=== PATIENT | male | born 1980 | race African-American/Black ===

== ENCOUNTER 2020-05-18 10:06 | Emergency (ER) | payer SELFPAY ==
[2020-05-18 10:18] VITALS: BP 131/80; PULSE 84; RESP 20; TEMP 36.6; O2SAT 98
[2020-05-18 10:56] LABS: Basophils Absolute Auto 0.1 K/mm3 (0.0-0.1); Basophils Percent Auto 1.1 % (0.2-1.2); Eosinophils Absolute Auto 0.2 K/mm3 (0-0.3); Eosinophils Percent Auto 2.8 % (0-4.4); Hematocrit 40.6 % (42.0-52.0); Immature Granulocyte Absolute 0.02 K/mm3 (0.00-0.031); Immature Granulocyte Percent A 0.4 % (0-0.5); Lymphocytes Absolute Auto 1.52 K/mm3 (0.9-3.2); Lymphocytes Percent Auto 28.6 % (18.3-44.2); Mean Corpuscular Hemoglobin 22.8 pg (26-34); Mean Corpuscular Volume 71.1 fl (80-100); Mean Platelet Volume 10.3 fl (7.4-10.4); Monocytes Absolute Auto 0.4 K/mm3 (0.1-0.6); Monocytes Percent Auto 7.9 % (2.6-8.5); Neutrophils Absolute Auto 3.2 K/mm3 (1.3-6.7); Neutrophils Percent Auto 59.2 % (45.5-73.1); Platelet Count Result 262 k/mm3 (150-375); Red Blood Count 5.71 M/mm3 (4.6-6.20); Red Cell Distribution Width 15.9 % (11.5-14.5); White Blood Count 5.3 K/mm3 (4.5-10.0)
[2020-05-18 11:05] LABS: Alanine Aminotransferase 16 U/L (4-50); Albumin Level 4.5 g/dL (3.5-5.1); Alkaline Phosphatase 48 U/L (38-126); Anion Gap 7 mmol/L (8-16); Aspartate Amino Transferase 29 U/L (17-59); Bilirubin,Total 0.3 mg/dL (0.2-1.3); Blood Urea Nitrogen 12 mg/dL (9-20); Calcium 8.9 mg/dL (8.4-10.2); Carbon Dioxide 29 mmol/L (22-30); Chloride 105 mmol/L (98-107); Estimated CRCL calculation 83 ml/min; Estimated Glomerular Filt Rate > 60; Glucose 87 mg/dL (75-110); Lipase 49 U/L (23-300); Potassium 4.3 mmol/L (3.4-5.0); Sodium 141 mmol/L (137-145)
[2020-05-18 12:01] VITALS: BP 125/78; O2SAT 100
[2020-05-18 12:06] LABS: Add Urine Microscopic? YES; Appearance Urine Clear (Clear); Bilirubin Urine Negative (Negative); Blood Urine Negative (Negative); Color Urine Yellow (Yellow); Glucose Urine UA Negative (Negative); Ketones Urine Negative (Negative); Leukocyte Esterase Ur Negative LEU/UL (Negative); Mucus Urine Rare /lpf; Nitrate Urine Negative (Negative); Protein Urine Negative (Negative); RBC Urine 0-2 /hpf (0-2); Specific Grav Ur 1.024 (1.001-1.035); Squamous Epithelial Cell Urine Rare /hpf (Few); WBC Urine 0-3 /hpf
[2020-05-18 12:16] VITALS: BP 125/83; O2SAT 100
--- NOTE | 2020-05-18 12:25 | ED.GENADULT ---
HPI - General Adult General Chief complaint: Nausea/Vomiting/Diarrhea Stated complaint: N/V/D Time Seen by Provider: 05/18/20 11:37 Source: patient Mode of arrival: ambulatory Limitations: no limitations History of Present Illness HPI narrative: Patient is a 40-year-old male who presents with nausea and vomiting that occurred after eating at a restaurant yesterday notes that the symptoms have resolved now and he does not have any abdominal pain and needs a work note patient notes that he is feeling much better at this time and has no other complaints or symptoms has not taken anything for his symptoms and can tolerate p.o. intake Related Data Home Medications Medication Instructions Recorded Confirmed No Home Medications 05/18/20 05/18/20 Allergies Allergy/AdvReac Type Severity Reaction Status Date / Time shrimp Allergy Unknown Verified 05/18/20 10:21 Review of Systems Review of Systems: All systems reviewed & are unremarkable except as noted in HPI and below PMFSH Social History Social History (Updated 05/18/20 @ 12:25 by Paramjit Freeman PA-C) Smoking status: Never smoker Gender identity (if verbalized by the patient): Male Exam Narrative: Exam Narrative: GENERAL: Well-appearing, well-nourished, and in no acute distress. HEAD: Normocephalic, atraumatic. EYES: PERRLA and EOMI. ENT: Nares clear, no rhinorrhea or epistaxis. Mucous membranes moist. CHEST: Clear to auscultation. No respiratory distress. No wheezes rales or rhonchi HEART: Regular rate and rhythm. No murmur heard. Normal peripheral pulses. ABDOMEN: Soft, nontender, nondistended EXTREMITIES: Normal range of motion. No edema. SKIN: Warm, dry, no rash. NEURO: No focal deficits. Alert and oriented x3. PSYCH: Normal mood and affect. Course Course Emergency Course: Patient in the room no distress aware of case findings treatment plan diagnosis agreeing to follow-up as instructed ABCs and vital signs intact and stable patient notes his symptoms have resolved Vital Signs Vital signs: Vital Signs Temperature 97.8 F 05/18/20 10:18 Pulse Rate 84 05/18/20 10:18 Respiratory Rate 20 05/18/20 10:18 Blood Pressure 131/80 05/18/20 10:18 Pulse Oximetry 98 05/18/20 10:18 Temperature 97.8 F 05/18/20 10:18 Pulse Rate 84 05/18/20 10:18 Respiratory Rate 20 05/18/20 10:18 Blood Pressure 131/80 05/18/20 10:18 Pulse Oximetry 98 05/18/20 10:18 Medical Decision Making MDM Narrative Medical decision making narrative: Patient presented with resolved nausea and vomiting nontender abdominal exam will be discharged home no high risk changes in the blood work patient provided with reasons to return feels comfortable with this plan Vital Signs Vital Signs: Vital Signs Temperature 97.8 F 05/18/20 10:18 Pulse Rate 84 05/18/20 10:18 Respiratory Rate 20 05/18/20 10:18 Blood Pressure 131/80 05/18/20 10:18 Pulse Oximetry 98 05/18/20 10:18 Temperature 97.8 F 05/18/20 10:18 Pulse Rate 84 05/18/20 10:18 Respiratory Rate 20 05/18/20 10:18 Blood Pressure 131/80 05/18/20 10:18 Pulse Oximetry 98 05/18/20 10:18 Lab Data Result diagrams: 05/18/20 10:33 05/18/20 10:33 Labs: Lab Results 05/18/20 05/18/20 05/18/20 Range/Units 10:33 10:33 11:53 WBC 5.3 (4.5-10.0) K/mm3 RBC 5.71 (4.6-6.20) M/mm3 Hgb 13.0 L (14.0-18.0) g/dL Hct 40.6 L (42.0-52.0) % MCV 71.1 L (80-100) fl MCH 22.8 L (26-34) pg MCHC 32.0 (32-36) g/dl RDW 15.9 H (11.5-14.5) % Plt Count 262 (150-375) k/mm3 MPV 10.3 (7.4-10.4) fl Immature Gran % (Auto) 0.4 (0-0.5) % Neut % (Auto) 59.2 (45.5-73.1) % Lymph % (Auto) 28.6 (18.3-44.2) % [place] % (Auto) 7.9 (2.6-8.5) % Eos % (Auto) 2.8 (0-4.4) % Baso % (Auto) 1.1 (0.2-1.2) % Lymph # (Auto) 1.52 (0.9-3.2) K/mm3 [place] # (Auto) 0.4 (0.1-0.6) K/mm3 Eos # (Auto) 0.2 (0-
[2020-05-18] MEDS: HYOSCYAMINE SULFATE 0.125 MG TABLET PO (12:29)
[2020-05-18 12:31] VITALS: BP 128/92; O2SAT 100
[2020-05-18 12:46] VITALS: BP 142/91; O2SAT 100
== END 2020-05-18 13:15 | disposition home or self-care (01) ==
PROVIDERS: Emergency Provider Emergency Medicine
DX: R10.9 Unspecified abdominal pain (principal)
CPT/HCPCS: 36415; 80053; 81001; 83690; 85025; 99283; A9270

== ENCOUNTER 2020-05-30 16:24 | Emergency (ER) | payer SELFPAY ==
--- NOTE | ~2020-05-30 | XR_ITS ---
EXAMINATION: XR chest 2V 05/30/2020 20:47 INDICATION: Numbness of the left hand. Smoker. PROCEDURE: PA and lateral views of the chest COMPARISON: No prior studies for comparison. FINDINGS: The lungs are clear. The cardiomediastinal silhouette is within normal limits. There are no pleural effusions. There is no pneumothorax suspected. IMPRESSION: 1: NO ACUTE CARDIOPULMONARY DISEASE. Reviewed, dictated and finalized at location A.
--- NOTE | ~2020-05-30 | CT_ITS ---
EXAMINATION: CT BRAIN W/O DATE: 05/30/2020 20:45 INDICATION: Numbness and tingling TECHNIQUE: Computed tomography (CT) of the head was performed without intravenous contrast. The dose- length product was 605.33 mGy-cm. Automated exposure control and iterative reconstruction technique w ere employed. COMPARISON: No prior studies for comparison. FINDINGS: Normal brain parenchymal volume for age. Normal osorio-white differentiation. No acute intrac ranial hemorrhage, infarction, mass or mass effect. 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 There is a for eign body in the posterior aspect of the right orbit measuring 4 mm. No ventriculomegaly or midline shift. Midline sagittal images demonstrate a normal corpus callosum, c raniovertebral junction and sella turcica. Basilar cisterns are patent. Paranasal sinuses and mastoids are pneumatized. No depressed skull fractures. IMPRESSION: 1. No acute intracranial abnormality. Reviewed, dictated and finalized at location A.
[2020-05-30 16:51] VITALS: BP 148/76; PULSE 76; RESP 16; TEMP 36.9; O2SAT 100
[2020-05-30 19:44] VITALS: BP 132/76; PULSE 84; RESP 17; O2SAT 97
--- NOTE | 2020-05-30 19:53 | ED.EXTPRO ---
HPI - Extremity Problem General Chief complaint: Extremity Problem,Nontraumatic Stated complaint: numbness lt hand Time Seen by Provider: 05/30/20 19:23 Source: patient Mode of arrival: ambulatory Limitations: no limitations History of Present Illness HPI Narrative: Patient 40 years old -[place] male presents with numbness and weakness of the left hand. Patient woke up this morning at 10 AM with numbness and weakness of left hand. Patient denies any fever, chills, nausea, vomiting, trauma, any numbness or tingling or weakness anywhere else. 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 EYES: Denies visual changes, redness, or discharge. ENT: Denies rhinorrhea, congestion, sore throat, or otalgia. CARDIOVASCULAR: Denies chest pain, palpitations, or edema. RESPIRATORY: Denies cough or dyspnea. GASTROINTESTINAL: Denies abdominal pain, nausea, vomiting, or diarrhea. GENITOURINARY: Denies dysuria or hematuria. SKIN: Denies rash or itching. MUSCULOSKELETAL: Denies back pain, joint pain, or myalgia. NEUROLOGIC: Denies headache, numbness, or weakness. PSYCHIATRIC: Denies anxiety or depression. PMFSH Social History Social History Smoking status: Never smoker Gender identity (if verbalized by the patient): Male Exam Narrative: Exam Narrative: General appearance: Well-developed, well-nourished Skin: Normal color Head: Normocephalic, nontraumatic Eyes: Clear conjunctiva, blindness right eye, ENT: Oropharynx normal, ears normal, nose normal Neck: Supple, nontender Chest and respiratory: Airway patent, no respiratory distress, no accessory muscle use Heart: Regular rate/rhythm Vascular: Normal peripheral pulses, normal capillary refill. Musculoskeletal: Normal range of motion, nontender back Neurologic: Alert and oriented ?3, weakness of left hands, weak flexion and extension also weak abduction and adduction of the fingers Course Course Emergency Course: Stable Vital Signs Vital signs: Vital Signs Temperature 36.9 C 05/30/20 16:51 Pulse Rate 76 05/30/20 16:51 Respiratory Rate 16 05/30/20 16:51 Blood Pressure 148/76 H 05/30/20 16:51 Pulse Oximetry 100 05/30/20 16:51 Temperature 36.9 C 05/30/20 16:51 Pulse Rate 84 05/30/20 19:44 Respiratory Rate 17 05/30/20 19:44 Blood Pressure 132/76 05/30/20 19:44 Pulse Oximetry 97 05/30/20 19:44 MDM - Extremity (Nontraumatic) MDM Narrative Medical decision making narrative: Carpal tunnel syndrome, radial nerve palsy , vasculitis are my concern. Labs, CT head, chest x-ray ordered. Further plan to follow Lab Data Result diagrams: 05/30/20 20:26 05/30/20 20:26 Labs: Lab Results 05/30/20 05/30/20 05/30/20 Range/Units 20:26 20:26 20:26 WBC 5.6 (4.5-10.0) K/mm3 RBC 5.98 (4.6-6.20) M/mm3 Hgb 13.8 L (14.0-18.0) g/dL Hct 43.8 (42.0-52.0) % MCV 73.2 L (80-100) fl MCH 23.1 L (26-34) pg MCHC 31.5 L (32-36) g/dl RDW 17.4 H (11.5-14.5) % Plt Count 281 (150-375) k/mm3 MPV 9.9 (7.4-10.4) fl Immature Gran % (Auto) 0.4 (0-0.5) % Neut % (Auto) 54.9 (45.5-73.1) % Lymph % (Auto) 29.4 (18.3-44.2) % [place] % (Auto) 7.0 (2.6-8.5) % Eos % (Auto) 7.0 H (0-4.4) % Baso % (Auto) 1.3 H (0.
[2020-05-30 20:33] LABS: Basophils Absolute Auto 0.1 K/mm3 (0.0-0.1); Basophils Percent Auto 1.3 % (0.2-1.2); Eosinophils Absolute Auto 0.4 K/mm3 (0-0.3); Hematocrit 43.8 % (42.0-52.0); Hemoglobin 13.8 g/dL (14.0-18.0); Immature Granulocyte Absolute 0.02 K/mm3 (0.00-0.031); Immature Granulocyte Percent A 0.4 % (0-0.5); Lymphocytes Absolute Auto 1.64 K/mm3 (0.9-3.2); Lymphocytes Percent Auto 29.4 % (18.3-44.2); Mean Corpuscular HGB Conc 31.5 g/dl (32-36); Mean Corpuscular Hemoglobin 23.1 pg (26-34); Mean Corpuscular Volume 73.2 fl (80-100); Mean Platelet Volume 9.9 fl (7.4-10.4); Monocytes Absolute Auto 0.4 K/mm3 (0.1-0.6); Neutrophils Absolute Auto 3.1 K/mm3 (1.3-6.7); Neutrophils Percent Auto 54.9 % (45.5-73.1); Platelet Count Result 281 k/mm3 (150-375); Red Blood Count 5.98 M/mm3 (4.6-6.20); Red Cell Distribution Width 17.4 % (11.5-14.5); White Blood Count 5.6 K/mm3 (4.5-10.0)
[2020-05-30 20:45] LABS: Alanine Aminotransferase 16 U/L (4-50); Albumin Level 4.3 g/dL (3.5-5.1); Alkaline Phosphatase 49 U/L (38-126); Anion Gap 9 mmol/L (8-16); Aspartate Amino Transferase 28 U/L (17-59); Bilirubin,Total 0.3 mg/dL (0.2-1.3); Blood Urea Nitrogen 14 mg/dL (9-20); Calcium 8.9 mg/dL (8.4-10.2); Carbon Dioxide 23 mmol/L (22-30); Chloride 108 mmol/L (98-107); Estimated CRCL calculation 85 ml/min; Estimated Glomerular Filt Rate > 60; Glucose 87 mg/dL (75-110); Potassium 3.9 mmol/L (3.4-5.0); Sodium 140 mmol/L (137-145)
[2020-05-30 20:47] LABS: CRP < 0.5 mg/dL (<1.0)
[2020-05-30 20:53] LABS: Erythrocyte Sedimentation Rate 3 mm/hr (0-20)
[2020-05-30 21:54] VITALS: BP 140/79; PULSE 88; RESP 15; O2SAT 97
== END 2020-05-30 21:55 | disposition home or self-care (01) ==
PROVIDERS: Emergency Provider Emergency Medicine
DX: R20.2 Paresthesia of skin (principal)
CPT/HCPCS: 36415; 70450; 71046; 80053; 85025; 85652; 86140; 99284

== ENCOUNTER 2021-05-13 10:52 | Emergency (ER) | payer BC, SELFPAY ==
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
[2021-05-13 11:15] VITALS: BP 118/92; PULSE 76; RESP 18; TEMP 36.4; O2SAT 100
[2021-05-13] MEDS: IBUPROFEN 600 MG TABLET PO (11:59)
[2021-05-13 12:09] LABS: Add Urine Microscopic? NO; Appearance Urine Clear (Clear); Bilirubin Urine Negative (Negative); Blood Urine Negative (Negative); Color Urine Yellow (Yellow); Glucose Urine UA Negative (Negative); Ketones Urine Negative (Negative); Leukocyte Esterase Ur Negative LEU/UL (Negative); Nitrate Urine Negative (Negative); Protein Urine Negative (Negative); Specific Grav Ur 1.013 (1.001-1.035); Urobilinogen Urine Negative mg/dL (<2.0)
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
[2021-05-13 12:40] VITALS: BP 130/82; PULSE 62; RESP 16; TEMP 36.6; O2SAT 100
== END 2021-05-13 12:42 | disposition home or self-care (01) ==
PROVIDERS: Emergency Provider Emergency Medicine
DX: M54.50 Low back pain, unspecified (principal); V43.52XA Car driver injured in collision with other type car in traffic accident, initial encounter
CPT/HCPCS: 72110; 81003; 99283; A9270